=== PATIENT | female | born 1960 | race Caucasian/White ===

== ENCOUNTER 2016-08-03 07:48 | Outpatient (CLI) ==
[2016-08-03 08:54] LABS: CHOL/HDL RATIO 3.8 (4.5-5.5)
== END 2016-08-03 07:49 | disposition home or self-care (01) ==
LOC: LAB 07:48
PROVIDERS: ATTEND Nurse Practitioner Family
DX: Z00.00 Encounter for general adult medical examination without abnormal findings (principal); R53.83 Other fatigue; E03.9 Hypothyroidism, unspecified; R79.89 Other specified abnormal findings of blood chemistry
CPT/HCPCS: 36415; 80061; 84439; 84443

== ENCOUNTER 2016-08-05 16:28 | Outpatient (CLI) ==
--- NOTE | 2016-08-05 16:53 | DI ---
EXAM: CHEST FRONTAL AND LATERAL VIEWS HISTORY: Cough. COMPARISON: None FINDINGS: Heart size within normal limits. There is at least mild aortic atherosclerosis. There i s a 3.5 cm right suprahilar density. Lungs are otherwise clear. No pleural fluid or vascular conge stion. Scoliosis is noted. IMPRESSION: Indeterminate 3.5 cm right suprahilar density could represent pneumonia or a mass. Short-term foll ow-up chest radiography after clinical assessment and management is recommended. CT is indicated if the finding does not clear. Unexpected finding.
== END 2016-08-05 16:29 | disposition home or self-care (01) ==
LOC: RAD 16:28
PROVIDERS: ATTEND Nurse Practitioner Family
DX: R05 Cough (principal)

== ENCOUNTER 2016-08-17 16:12 | Emergency (ER) ==
[2016-08-17 16:18] VITALS: BP 133/85; TEMP 100.6; BMI 28.8
--- NOTE | 2016-08-17 16:26 | ED.PDOC ---
General ED Provider: Dr. DANNIE CISNEROS JR Chief Complaint: Fever Stated Complaint: patient states she has run a low grade fever for 3 months. states she has taken keflex and levaquin and solumedrol dose brennan. states she ran a fever today of 101.4. patient states she has a 3.6cm mass in right lung that is pneumonia vs. mass. [ End ]3 months 100.6 86 18 96% 133/85 3/10 tylenol at 15:30. fatty tumor left side of neck. thy hys. cxr 08/05/16 3.5 cm right suprahilar mass Time Seen by Physician: 16:26 Mode of Arrival: Walk-In Information Source: Patient Exam Limitations: No limitations Primary Care Provider: CLAIR SOLORZANO Nursing and Triage Documentation Reviewed and Agree: No Review of Systems - Review Of Systems Constitutional: Reports: Chills, Fever Eyes: Reports: No symptoms Ears, Nose, Mouth, Throat: Reports: No symptoms Respiratory: Reports: Cough, Other (hemoptysis) Cardiac: Reports: No symptoms GI: Reports: No symptoms : Reports: No symptoms Musculoskeletal: Reports: Other (left infraclavicular mass) Skin: Reports: Lumps Neurological: Reports: No symptoms Endocrine: Reports: No symptoms Hematologic/Lymphatic: Reports: No symptoms All Other Systems: Other Past Medical History - Past Medical History Previously Healthy: Yes Endocrine: Reports: None Cardiovascular: Reports: None Respiratory: Reports: None Hematological: Reports: None Gastrointestinal: Reports: None Genitourinary: Reports: None Neuro/Psych: Reports: None Musculoskeletal: Reports: Other (fatty tumor left chest) Cancer: Reports: None Last Menstrual Period: n/a - Surgical History General Surgical History: Reports: Hysterectomy - Family History Family History: Reports: Unknown - Social History Smoking Status: Former smoker Hx Substance Use: No Alcohol Screening: None Physical Exam - Physical Exam Appearance: Well-appearing, Thin Pain Distress: Mild Eyes: CARLEE, EOMI, Conjunctiva clear ENT: Ears normal, Nose normal, Oropharynx normal Neck: Supple Respiratory: Airway patent, Breath sounds clear, Breath sounds equal, Respirations nonlabored Cardiovascular: RRR, Pulses normal, No rub, No murmur GI/: Soft, Nontender, No masses, Bowel sounds normal, No Organomegaly Musculoskeletal: Normal strength, ROM intact, No edema, No calf tenderness Skin: Warm, Dry, Normal color Neurological: Sensation intact, Motor intact, Reflexes intact, Cranial nerves intact, Alert, Oriented Psychiatric: Affect appropriate, Mood appropriate Interpretation - Radiology Interpretation Radiology Interpretation By: Radiologist Radiology Results: Positive Exam Interpreted: CT Scan (multiple nodes suspicious for malignancy) Critical Care Note - Critical Care Note Total Time (mins): 0 Course - Course Orders, Labs, Meds: Lab Review 08/17/16 16:24 Influenza A (Rapid) Negative Influenza B (Rapid) Negative Orders Category Date Time Status BLOOD CULTURE Stat LAB 08/17/16 17:10 Received MOLECULAR GROUP A STREP Stat LAB 08/17/16 17:00 Results RAPID FLU A/B Stat LAB 08/17/16 16:24 Completed STREP SCREEN Stat LAB 08/17/16 17:[address] CHEST W/O CONTRAST Stat RADS 08/17/16 16:56 Completed Vital Signs: Temp Pulse Resp BP Pulse Ox 08/17/16 16:14 100.6 F H 86 18 133/85 96 Departure - Departure Time of Disposition: 18:15 Disposition: HOME SELF-CARE Discharge Problem: Mass of right lung Pneumonia Qualifiers: Pneumonia type: due to unspecified organism Laterality: right Lung location: upper lobe of lung Qualifier Code: (J18.1) Lobar pneumonia, unspecified organism Instructions: Bacterial Pneumonia (ED), Soft Tissue Mass (ED), Pulmonary Nodules (ED) Condition: Stable Pt referred to PMD for follow-up: Yes Additional Instructions: antibiotic until gone follow up with PMD in morning request consult for surgery evaluation of lung mass return if worsening continue mucinex until clear Prescriptions: Amoxicillin/Potassium Clav [Augmentin 875-125 mg Tab] 1 tab PO BIDWM #14 tablet Guaifenesin [Mucinex] 1,200 mg PO BID PRN #60 tab.er.12h PRN Reason: congestion Guaifenesin/Codeine Phosphate [Robitussin AC Syrup] 10 ml PO Q6H PRN #240 ml PRN Reason: Cough Allergies/Adverse Reactions: Allergies sulfamethoxazole [From Bactrim] Adverse Reaction (Verified 08/17/16 16:18) trimethoprim [From Bactrim] Adverse Reaction (Verified 08/17/16 16:18) Home Medications: Ambulatory Orders Acetaminophen [Tylenol] 1,000 mg PO DAILY PRN 06/23/16 Diphenhydramine HCl [Benadryl] 25 mg PO DAILY PRN 06/23/16 Ibuprofen [Motrin] 400 mg PO DAILY PRN 06/23/16 Naproxen [Naprosyn] 500 mg PO BID PRN #50 06/23/16 Amoxicillin/Potassium Clav [Augmentin 875-125 mg Tab] 1 tab PO BIDWM #14 tablet 08/17/16 Guaifenesin [Mucinex] 1,200 mg PO BID PRN #60 tab.er.12h 08/17/16 Guaifenesin/Codeine Phosphate [Robitussin AC Syrup] 10 ml PO Q6H PRN #240 ml
[2016-08-17 17:23] LABS: FLU INTERNAL QC INTERNAL QC VALID; RAPID FLU A NEGATIVE (NEGATIVE); RAPID FLU B NEGATIVE (NEGATIVE)
--- NOTE | 2016-08-17 18:01 | CT ---
EXAM: CT of the chest without contrast. HISTORY: Right lung mass. New fever. Left subclavian mass. PROCEDURE: Contiguous axial CT images of the chest without contrast with coronal and sagittal refor mats. FINDINGS: The exam is limited without IV contrast. The heart is within normal limits in size. The t horacic aorta is within normal limits in diameter. There is a focal area of soft tissue density in t he right mainstem bronchus measuring 0.8 cm suspicious for malignancy. There is an enlarged pre tra cheal lymph node measuring up to 1.1 cm in short axis. There is a right hilar mass extending into th e right upper lobe measuring up to 3.1 x 3.8 cm. There are multiple nodules in the right upper lobe measuring up to 0.5 cm. There is minimal right upper lobe atelectasis and/or pneumonia. There is a d estructive lytic lesion in the head of the left clavicle measuring 2 cm. Impression: Right hilar mass extending into the right upper lobe measuring up to 3.1 x 3.8 cm which is highly suspicious for malignancy. 0.8 cm lesion in the right mainstem bronchus, suspicious for malignancy. Multiple right upper lobe nodules measuring up to 0.5 cm, mediastinal lymphadenopathy and 2 cm destr uctive lytic lesion in the head of the left clavicle, suspicious for metastatic disease. Minimal right upper lobe atelectasis and/or pneumonia.
== END 2016-08-17 18:32 | disposition home or self-care (01) ==
LOC: ED 16:12
DX: J18.1 Lobar pneumonia, unspecified organism (principal); R91.8 Other nonspecific abnormal finding of lung field
CPT/HCPCS: 36415; 87040; 87651; 87804; 87880; 99283

== ENCOUNTER 2016-08-19 15:52 | Outpatient (CLI) ==
[2016-08-19 16:46] LABS: BASOPHILS % (AUTO) 0.3 % (0.0-3.0); EOSINOPHILS # (AUTO) 0.1 K/ul (0.0-0.7); EOSINOPHILS % (AUTO) 0.9 % (0.0-7.0); HEMATOCRIT 34.3 % (37.0-47.0); HEMOGLOBIN 10.7 g/dl (12.0-16.0); IMMATURE GRANULOCYTE % (AUTO) 0.4 % (0.0-5.0); LYMPHOCYTES # (AUTO) 2.2 K/uL (0.60-3.4); LYMPHOCYTES % (AUTO) 19.3 (10.0-50.0); MEAN CORPUSCULAR HEMOGLOBIN 25.7 pg (27.0-31.0); MEAN CORPUSCULAR HGB CONC 31.2 (31.8-35.4); MEAN CORPUSCULAR VOLUME 82.3 fl (81.0-99.0); MONOCYTES # (AUTO) 0.7 K/uL (0.4-2.0); MONOCYTES % (AUTO) 6.3 (0-10); NEUTROPHILS # (AUTO) 8.3 K/ul (2.0-6.9); NEUTROPHILS % (AUTO) 72.8; PLATELET COUNT 424 10^3/uL (140-440); RED BLOOD COUNT 4.17 10^6/ul (4.20-5.40); WHITE BLOOD COUNT 11.37 K/ul (4.6-10.2)
[2016-08-19 16:58] LABS: ALBUMIN 3.6 g/dL (3.4-5.0); ALBUMIN/GLOBULIN RATIO 0.8; ANION GAP 19.7; BILIRUBIN,TOTAL 0.26 mg/dL (0.00-1.20); BUN/CREATININE RATIO 15.18; CALCIUM 9.5 mg/dL (8.2-10.2); CREATININE 0.79 mg/dL (0.60-1.30); POTASSIUM 3.7 mmol/L (3.5-5.10); TOTAL PROTEIN 8.1 g/dL (6.4-8.2)
== END 2016-08-19 15:53 | disposition home or self-care (01) ==
LOC: LAB 15:52
PROVIDERS: ATTEND Nurse Practitioner Family
DX: R91.8 Other nonspecific abnormal finding of lung field (principal); R04.2 Hemoptysis; R50.9 Fever, unspecified
CPT/HCPCS: 36415; 80053; 85025

== ENCOUNTER 2016-08-20 10:48 | Outpatient (CLI) ==
--- NOTE | 2016-08-20 12:04 | CT ---
EXAM: CT of the chest with contrast History: Right hilar mass, follow up. Comparison: Chest CT 08/17/2016. Technique: Multiplanar CT images through the thorax were obtained following administration of IV co ntrast Findings: Heart size is normal. No pericardial effusion. Great vessels are unremarkable. No sign ificant interval change in the malignant appearing right hilar mass measuring 3.8 cm x 3.2 cm. This mass is invading the right mainstem bronchus and mediastinum. 1.2 cm pretracheal mediastinal lymph node. No left hilar adenopathy. No axillary adenopathy. No pneumothorax. Now significant interv al change in the multiple tiny satellite nodules adjacent to the right hilar mass. No pleural fluid . No left lung nodules. Within the visualized upper abdomen, no acute findings. Lytic lesion again seen within the head of the left clavicle. Impression: 1. No significant interval change in the malignant appearing right hilar mass as detailed above. 2. No significant interval change in the mildly enlarged pretracheal mediastinal lymph node which i s probably metastatic. 3. No change in the lytic lesion within the head of the left clavicle suspicious for metastasis.
== END 2016-08-20 10:49 | disposition home or self-care (01) ==
LOC: RAD 10:48
PROVIDERS: ATTEND Nurse Practitioner Family
DX: R91.8 Other nonspecific abnormal finding of lung field (principal); R04.2 Hemoptysis; R50.9 Fever, unspecified

== ENCOUNTER 2016-10-16 22:27 | Emergency (ER) | payer OTHER ==
[2016-10-16 22:44] VITALS: BMI 28.3
[2016-10-16] MEDS ORDERED: SODIUM CHLORIDE 1,000 ML IV STA (23:05)
[2016-10-16] MEDS ORDERED: DILAUDID 1 MG/ML SYRINGE IVP STA (23:06)
[2016-10-16] MEDS ORDERED: ZOFRAN 4 MG/2 ML IVP STA (23:06)
[2016-10-16 23:16] LABS: BASOPHILS % (AUTO) 0.3 % (0.0-3.0); EOSINOPHILS # (AUTO) 0.1 K/ul (0.0-0.7); EOSINOPHILS % (AUTO) 2.9 % (0.0-7.0); HEMATOCRIT 31.4 % (37.0-47.0); HEMOGLOBIN 9.6 g/dl (12.0-16.0); IMMATURE GRANULOCYTE % (AUTO) 0.3 % (0.0-5.0); LYMPHOCYTES # (AUTO) 0.6 K/uL (0.60-3.4); LYMPHOCYTES % (AUTO) 16.1 (10.0-50.0); MEAN CORPUSCULAR HEMOGLOBIN 24.4 pg (27.0-31.0); MEAN CORPUSCULAR HGB CONC 30.6 (31.8-35.4); MEAN CORPUSCULAR VOLUME 79.7 fl (81.0-99.0); MONOCYTES # (AUTO) 0.1 K/uL (0.4-2.0); MONOCYTES % (AUTO) 3.4 (0-10); PLATELET COUNT 238 10^3/uL (140-440); RED BLOOD COUNT 3.94 10^6/ul (4.20-5.40); WHITE BLOOD COUNT 3.84 K/ul (4.6-10.2)
[2016-10-16 23:41] LABS: ALANINE AMINOTRANSFERASE 12 U/L (12-78); ALBUMIN 3.6 g/dL (3.4-5.0); ALBUMIN/GLOBULIN RATIO 1.16; ALKALINE PHOSPHATASE 80 U/L (42-98); ANION GAP 11.7; ASPARTATE AMINO TRANSFERASE 14 U/L (15-37); BILIRUBIN,TOTAL 0.46 mg/dL (0.00-1.20); BLOOD UREA NITROGEN 18 mg/dL (7-18); BUN/CREATININE RATIO 26.08; CALCIUM 8.5 mg/dL (8.2-10.2); CARBON DIOXIDE 30 mmol/L (21-32); CHLORIDE 102 mmol/L (98-107); CREATINE KINASE 26 U/L; CREATININE 0.69 mg/dL (0.60-1.30); GLUCOSE 88 mg/dL (70-110); POTASSIUM 3.7 mmol/L (3.5-5.10); SODIUM 140 mmol/L (136-145); TOTAL PROTEIN 6.7 g/dL (6.4-8.2)
--- NOTE | 2016-10-17 00:45 | CT ---
Exam: CT angiography of the chest History: Right chest wall pain Technique: [address] of the chest utilizing CT angiography protocol per multiplanar and maximum intensity projection reformations were performed. FINDINGS: The exam is technically adequate for evaluation of pulmonary arteries and aorta. Filling defects noted within the segmental right lower lobe posteriorly. No additional pulmonary artery fi lling defects are seen. Right upper lobe mass measures 4.5 x 4.0 cm previously 4.5 x 3.8 cm on 07/26. Small focus of consolidation has developed in the peripheral right upper lobe. There is so me pulmonary branch narrowing in the right upper lobe from the mass. Mediastinal lymph node enlarge ment is probably stable with 11 mm maximum pretracheal lymph node diameter. Erosive changes of the head of the clavicle on the left. No acute findings of the bony thorax otherwise. Impression: 1. Critical result: Right lower lobe pulmonary artery thrombus. Overall small thrombus burden. 2. Right upper lobe mass essentially stable from 08/20/2016. 3. Stable mediastinal lymphadenopathy 4. Stable erosive change of the head of the clavicle on the left. Discussed with ordering physician at 0040 hours Central time.
--- NOTE | 2016-10-17 00:51 | ED.PDOC ---
General ED Provider: Dr. CHIUQIS SANTAMARIA-ER Chief Complaint: Chest Wall Injury/Pain Stated Complaint: it hurts to breathe--my cancer doctor told me to come to the er becasue i might have a blood clot Time Seen by Physician: 22:35 Mode of Arrival: Walk-In Information Source: Patient, Family Exam Limitations: No limitations Primary Care Provider: CLAIR SOLORZANO Nursing and Triage Documentation Reviewed and Agree: Yes Respiratory Complaint Exam - Respiratory Complaint/Exam Onset/Duration: 24hrs Symptoms Are: Still present Timing: Intermittent Initial Severity: Mild Current Severity: Moderate Location: Chest Character: Reports: Non-productive cough Aggravating: Reports: Deep breaths Alleviating: Reports: Spontaneous resolution. Denies: Antibiotics Associated Signs and Symptoms: Reports: Pleuritic chest pain. Denies: Rapid breathing, Dyspnea, Fever, Chills, Chest pain, Wheezing, Hemoptysis, Dizziness, Calf pain, Calf swelling, Edema, Nasal congestion, Hoarseness, Sinus discomfort , Vomiting, Sore throat, Weight loss, Decreased oral intake, Increased thirst, Increased appetite, Increased urination Related History: Reports: Similar episode History of Healthcare-Acquired Pneumonia: No Pulmonary Embolism Risk Factors: None Pseudomonas Risk Factors: Reports: Chronic Lung Disease Status Asthmaticus Risk Factors: Reports: None Home Oxygen Use: No Recent Stress Test: No Recent Echo/LV Function: Yes Current Antibiotic Use: No Current Asthma Medication Use: No Respiratory Distress: None Inadequate Respiratory Effort: No Dysphagia Present: No Stridor Present: No JVD Present: No Accessory Muscle Use: No Retractions: Not Present Diminished Breath Sounds: No Sinus Tenderness: None Grunting Respirations: No Kussmaul Respirations: No Differential Diagnoses: Pneumonia, Other Non-Traumatic Chest Pain Syncope: EKG Performed Review of Systems - Review Of Systems Constitutional: Reports: No symptoms Eyes: Reports: No symptoms Ears, Nose, Mouth, Throat: Reports: No symptoms Respiratory: Reports: No symptoms Cardiac: Reports: Chest pain GI: Reports: No symptoms : Reports: No symptoms Musculoskeletal: Reports: No symptoms Skin: Reports: No symptoms Neurological: Reports: No symptoms Endocrine: Reports: No symptoms Hematologic/Lymphatic: Reports: No symptoms All Other Systems: Reviewed and Negative Past Medical History - Past Medical History Previously Healthy: Yes Endocrine: Reports: None Cardiovascular: Reports: None Respiratory: Reports: None Hematological: Reports: None Gastrointestinal: Reports: None Genitourinary: Reports: None Neuro/Psych: Reports: None Musculoskeletal: Reports: Other (fatty tumor left chest) Cancer: Reports: None Last Menstrual Period: PT HAS HAD A HYSTERECTOMY - Surgical History General Surgical History: Reports: Hysterectomy - Family History Family History: Reports: Unknown - Social History Smoking Status: Former smoker Hx Substance Use: No Alcohol Screening: None - Immunizations Tetanus Shot up to Date: (UNKNOWN) Physical Exam - Physical Exam Appearance: Well-appearing, No pain distress, Well-nourished Pain Distress: Mild Eyes: CARLEE ENT: Ears normal, Nose normal, Oropharynx normal Neck: Supple Respiratory: Airway patent, Breath sounds clear, Breath sounds equal, Respirations nonlabored Cardiovascular: RRR, Pulses normal, No rub, No murmur GI/: Soft Musculoskeletal: Normal strength, ROM intact, No edema, No calf tenderness Skin: Warm, Dry, Normal color Neurological: Sensation intact, Motor intact, Reflexes intact, Cranial nerves intact, Alert, Oriented Psychiatric: Affect appropriate, Mood appropriate, Anxious Interpretation - Radiology Interpretation Radiology Interpretation By: Radiologist Radiology Results: Positive Exam Interpreted: CT Scan ("small pulmonary embolism right lung") Critical Care Note - Critical Care Note Total Time (mins): 0 Course - Course Hematology/Chemistry: 10/16/16 23:10 10/16/16 23:10 Orders, Labs, Meds: Lab Review 10/16/16 23:10 WBC 3.84 L RBC 3.94 L Hgb 9.6 L Hct 31.4 L MCV 79.7 L MCH 24.4 L MCHC 30.6 L RDW Coeff of Astrid 19.1 H Plt Count 238 Immature Gran % (Auto) 0.3 Neut % (Auto) 77.0 Lymph % (Auto) 16.1 [place] % (Auto) 3.4 Eos % (Auto) 2.9 Baso % (Auto) 0.3 Immature Gran # (Auto) 0.0 Neut # 3.0 Lymph # 0.6 [place] # 0.1 L Eos # 0.1 Baso # 0.0 Sodium 140 Potassium 3.7 Chloride 102 Carbon Dioxide 30 Anion Gap 11.7 BUN 18 Creatinine 0.69 Estimated GFR (MDRD) 88.00 BUN/Creatinine Ratio 26.08 Glucose 88 Calcium 8.5 Total Bilirubin 0.46 AST 14 L ALT 12 Alkaline Phosphatase 80 Total Creatine Kinase 26 Troponin I < 0.0100 Total Protein 6.7 Albumin 3.6 Globulin 3.1 Albumin/Globulin Ratio 1.16 Orders Category Date Time Status EKG-(ED ONLY) Stat CARDIO 10/16/16 23:05 Completed NPO REMINDER: IMAGING ONCE CARE 10/16/16 23:06 Active IV [ED IV/MEDIPORT/POWERPORT] .ONCE EMERGENCY 10/16/16 23:05 Active CBC W/ AUTO DIFF Stat LAB 10/16/16 23:10 Completed COMPREHENSIVE METABOLIC PANEL Stat LAB 10/16/16 23:10 Completed CREATINE KINASE Stat LAB 10/16/16 23:10 Completed TROPONIN I Stat LAB 10/16/16 23:10 Completed 0.9 % Sodium Chloride [Saline Flush] MEDS 10/16/16 23:05 Ordered 1 syr IVF PRN PRN Hydromorphone HCl [Dilaudid 1 mg/ml Syringe] MEDS 10/16/16 23:06 Discontinued 1 mg IVP ONCE STA Ondansetron HCl/Pf [Zofran 4 mg/2 ml] MEDS 10/16/16 23:06 Discontinued 4 mg IVP ONCE STA Sodium Chloride 0.9% [Sodium Chloride] 1,000 ml MEDS 10/16/16 23:05 Active IV 100 mls/hr CT CHEST PE PROTOCOL Stat RADS 10/16/16 23:06 Completed Medications Generic Name Dose Route Start Last Admin Trade Name Freq PRN Reason Stop Dose Admin Sodium Chloride 1,000 mls @ 100 mls/hr 10/16/16 23:05 10/16/16 23:25 Sodium Chloride IV 10/17/16 09:04 100 mls/hr .Q10H STA Administration Sodium Chloride 1 syr 10/16/16 23:05 10/16/16 23:27 Saline Flush IVF 1 syr PRN PRN Administration To flush IV Discontinued Medications Generic Name Dose Route Start Last Admin Trade Name Freq PRN Reason Stop Dose Admin Hydromorphone HCl 1 mg 10/16/16 23:06 10/16/16 23:29 Dilaudid 1 Mg/Ml Syringe IVP 10/16/16 23:07 1 mg ONCE STA Administration Ondansetron HCl 4 mg 10/16/16 23:06 10/16/16 23:27 Zofran 4 Mg/2 Ml IVP 10/16/16 23:07 4 mg ONCE STA Administration Vital Signs: Temp Pulse Resp BP Pulse Ox 10/16/16 22:31 98.6 F 72 18 118/74 96 Departure - Departure Time of Disposition: 00:52 Disposition: TSF SHORT-TRM HOSP Discharge Problem: Pulmonary emboli Qualifiers: Pulmonary embolism type: other Chronicity: acute Acute cor pulmonale presence: without acute cor pulmonale Qualifier Code: (I26.99) Other pulmonary embolism without acute cor pulmonale Instructions: Chest Pain (ED) Condition: Good Pt referred to PMD for follow-up: Yes Allergies/Adverse Reactions: Allergies sulfamethoxazole [From Bactrim] Adverse Reaction (Verified 10/16/16 22:44) trimethoprim [From Bactrim] Adverse Reaction (Verified 10/16/16 22:44) Home Medications: Ambulatory Orders Acetaminophen [Tylenol] 1,000 mg PO DAILY PRN 06/23/16 Carboplatin 10 mg IV DIRECTED 10/16/16 Cyanocobalamin (Vitamin B-12) [Cyanocobalamin Injection] 1 ml IM MONTHLY Dexamethasone 0.5 mg PO DIRECTED 10/16/16 Folic Acid 1 mg PO DAILY 10/16/16 Hydrocodone/Acetaminophen [Eva 7.5-325 Tablet] 1 - 2 tab PO Q4-6H PRN Lidocaine/Prilocaine [Lidocaine-Prilocaine Cream] 30 gm TP DIRECTED 10/16/16 Lorazepam [Ativan] 105 mg PO BID PRN 10/16/16 Ondansetron [Zuplenz] 8 mg PO Q8H PRN 10/16/16 Pembrolizumab [Keytruda] 50 mg IV DIRECTED 10/16/16 Pemetrexed Disodium [Alimta] 100 mg IV DIRECTED 10/16/16 Prochlorperazine Maleate [Compazine] 10 mg PO Q6H PRN 10/16/16 Transfer Form Completed: Yes Disposition Discussed With: Patient, Family
[2016-10-17] MEDS ORDERED: LOVENOX SUBCUT STA (00:56)
[2016-10-17] MEDS ORDERED: DILAUDID 1 MG/ML SYRINGE IVP STA (01:15)
[2016-10-17 01:17] VITALS: BP 147/74; TEMP 98.3
== END 2016-10-17 01:30 | disposition short-term general hospital (02) ==
LOC: ED 22:27
DX: I26.99 Other pulmonary embolism without acute cor pulmonale (principal); Z79.899 Other long term (current) drug therapy
CPT/HCPCS: 36415; 80053; 82550; 84484; 85025; 93005; 93010; 96361; 96372; 96374; 96375; 96376; 99285